=== PATIENT | male | born 1940 | race Caucasian/White ===

== ENCOUNTER 2017-04-09 18:33 | Emergency (ER) | payer MEDICARE, MEDICAID, OTHER ==
[2017-04-09] MEDS ORDERED: Enoxaparin 100 MG/1 ML Syringe SUBCUT ONE (19:30)
--- NOTE | 2017-04-10 09:01 | EDM.PDOC ---
ED HPI GENERAL MEDICAL PROBLEM - General Chief Complaint: General Stated Complaint: possible stroke Time Seen by Provider: 04/09/17 18:40 Source of Information: Reports: Patient, Family History Limitations: Reports: No Limitations - History of Present Illness INITIAL COMMENTS - FREE TEXT/NARRATIVE: This is a 76yo M who is diaphoretic and had a reported TIA yesterday. Most of his symptoms including right sided face and right arm weakness has resolved but according to family his speech has mostly but not fully resolved. Patient refused to come in to the ER yesterday. He was brought in unwillingly today but his daughter and son-in-law. He denies any chest pain, denies sob, and states he feels ok but appears diaphoretic. Family state that 2 weeks ago he was not feeling well and felt he had the flu and when laying in bed his lips were blue. This resolved over the course of a day or two. He does state he feels somewhat better but not 100%. Onset: Gradual Duration: Day(s):, Constant Location: Reports: Generalized Severity: Mild Improves with: Reports: None Worsens with: Reports: None Associated Symptoms: Reports: Diaphoresis Social & Family History - Family History Cardiac: Reports: Other (See Below) Other Cardiac Family History: Family states there is a history of cardiac problems. ED ROS GENERAL - Review of Systems Review Of Systems: ROS reveals no pertinent complaints other than HPI. ED EXAM, GENERAL - Physical Exam Exam: See Below Exam Limited By: No Limitations General Appearance: Alert, WD/WN, Mild Distress Eye Exam: Bilateral Eye: EOMI, PERRL Nose: Normal Inspection Throat/Mouth: Normal Inspection Head: Atraumatic, Normocephalic Neck: Normal Inspection Respiratory/Chest: No Respiratory Distress, Lungs Clear, Normal Breath Sounds Cardiovascular: Tachycardia, Irregularly Irregular GI/Abdominal: Normal Bowel Sounds Back Exam: Normal Inspection Extremities: Normal Inspection Neurological: Alert, Oriented, CN II-XII Intact Psychiatric: Normal Affect, Normal Mood Skin Exam: Warm, Intact, Diaphoretic Course - Vital Signs Last Recorded V/S: Last Vital Signs Temp Pulse 86 04/09/17 20:44 Resp 24 H 04/09/17 20:44 BP 137/85 04/09/17 20:44 Pulse Ox 97 04/09/17 20:44 - Orders/Labs/Meds Orders: Active Orders 24 hr Category Date Time Status EKG Documentation Completion [RC] ASDIRECTED Care 04/09/17 18:38 Active FREE T3 [REF] Stat Lab 04/10/17 09:00 Ordered FREE T4 [REF] Stat Lab 04/10/17 09:00 Ordered Labs: Laboratory Tests 04/09/17 04/09/17 04/09/17 Range/Units 18:45 18:45 18:45 WBC 7.0 (4.0-11.0) K/uL RBC 5.04 (4.50-6.50) M/uL Hgb 15.1 (13.0-18.0) g/dL Hct 44.1 (40.0-54.0) % MCV 88 (76-96) fL MCH 30.0 (27.0-32.0) pg MCHC 34.2 (31.0-35.0) g/dL RDW 13.7 (11.0-16.0) % Plt Count 188 (150-400) K/uL MPV 10.1 H (6.0-10.0) fL Neut % (Auto) 67.0 (45.0-70.0) % Lymph % (Auto) 19.1 L (20.0-40.0) % [place] % (Auto) 11.9 H (3.0-10.0) % Eos % (Auto) 1.7 (1.0-5.0) % Baso % (Auto) 0.3 (0.0-0.5) % Neut # (Auto) 4.68 (2.00-7.50) K/uL Lymph # (Auto) 1.33 L (1.50-4.00) K/uL [place] # (Auto) 0.83 H (0.20-0.80) K/uL Eos # (Auto) 0.12 (0.04-0.40) K/uL Baso # (Auto) 0.02 (0.02-0.10) K/uL PT 10.2 (9.0-11.5) sec INR 1.0 (1.0-3.5) Sodium 141 (136-145) mmol/L Potassium 4.2 (3.5-5.1) mmol/L Chloride 105 (98-107) mmol/L Carbon Dioxide 25.9 (21.0-32.0) mmol/L Anion Gap 14.3 (5.0-15.0) mmol/L BUN 12 (8-26) mg/dL Creatinine 1.18 (0.70-1.30) mg/dL Est Cr Clr Drug Dosing TNP Estimated GFR (MDRD) > 60 (>60) MLS/MIN BUN/Creatinine Ratio 10.2 (6-25) Glucose 107 H (74-100) mg/dL Calcium 9.0 (8.5-10.1) mg/dL Total Bilirubin 0.3 (0.0-1.0) mg/dL AST 37 (15-37) U/L ALT 56 (12-78) U/L Alkaline Phosphatase 79 (46-116) U/L Troponin I (0.000-0.060) ng/mL Total Protein 7.9 (6.4-8.2) g/dL Albumin 2.9 L (3.4-5.0) g/dL Globulin 5.0 H (2.2-4.2) g/dL Albumin/Globulin Ratio 0.6 L (0.8-2.0) TSH, Ultra Sensitive 3.948 H (0.358-3.740) uIU/mL 04/09/17 Range/Units 18:45 WBC (4.0-11.0) K/uL RBC (4.50-6.50) M/uL Hgb (13.0-18.0) g/dL Hct (40.0-54.0) % MCV (76-96) fL MCH (27.0-32.0) pg MCHC (31.0-35.0) g/dL RDW (11.0-16.0) % Plt Count (150-400) K/uL MPV (6.0-10.0) fL Neut % (Auto) (45.0-70.0) % Lymph % (Auto) (20.0-40.0) % [place] % (Auto) (3.0-10.0) % Eos % (Auto) (1.0-5.0) % Baso % (Auto) (0.0-0.5) % Neut # (Auto) (2.00-7.50) K/uL Lymph # (Auto) (1.50-4.00) K/uL [place] # (Auto) (0.20-0.80) K/uL Eos # (Auto) (0.04-0.40) K/uL Baso # (Auto) (0.02-0.10) K/uL PT (9.0-11.5) sec INR (1.0-3.5) Sodium (136-145) mmol/L Potassium (3.5-5.1) mmol/L Chloride (98-107) mmol/L Carbon Dioxide (21.0-32.0) mmol/L Anion Gap (5.0-15.0) mmol/L BUN (8-26) mg/dL Creatinine (0.70-1.30) mg/dL Est Cr Clr Drug Dosing Estimated GFR (MDRD) (>60) MLS/MIN BUN/Creatinine Ratio (6-25) Glucose (74-100) mg/dL Calcium (8.5-10.1) mg/dL Total Bilirubin (0.0-1.0) mg/dL AST (15-37) U/L ALT (12-78) U/L Alkaline Phosphatase (46-116) U/L Troponin I 0.036 (0.000-0.060) ng/mL Total Protein (6.4-8.2) g/dL Albumin (3.4-5.0) g/dL Globulin (2.2-4.2) g/dL Albumin/Globulin Ratio (0.8-2.0) TSH, Ultra Sensitive (0.358-3.740) uIU/mL Meds: Medications Discontinued Medications Generic Name Dose Route Start Last Admin Trade Name Yves PRN Reason Stop Dose Admin Enoxaparin Sodium 100 mg 04/09/17 19:30 04/09/17 19:30 Lovenox SUBCUT 04/09/17 19:31 100 mg ONETIME ONE Administration - Re-Assessments/Exams Free Text/Narrative Re-Assessment/Exam: Patient given 27mg of Cardizem IV x1 which rate controlled his Atrial Fibrillation and brought it down from 130-150 to 80-100 range. He felt much better once the rate was controlled. His diaphoresis resolved after a few minutes with his controlled rate and he stated he felt much better. Departure - Departure Time of Disposition: 21:20 Disposition: Home, Self-Care 01 Condition: Fair Clinical Impression: Atrial fibrillation with RVR, Elevated TSH TIA (transient ischemic attack) Qualifiers: Transient cerebral ischemia type: other Qualified Code(s): G45.8 - Other transient cerebral ischemic attacks and related syndromes Instructions: Enoxaparin injection, Diltiazem tablets, Atrial Fibrillation, [id number] Forms: ED Department Discharge Additional Instructions: Fill prescriptions for Lovenox and Cardizem at pharmacy tomorrow and take as directed. The front office will call you tomorrow with date and time for Echo scheduled. Drink plenty of fluids and get plenty of rest. Light activity as tolerated. Follow up in clinic at end of this week. Should your symptoms persist or worsen, return to be seen right away. Call with any questions. - Problem List Review Problem List Initiated/Reviewed/Updated: Yes - My Orders Last 24 Hours: My Active Orders 04/09/17 18:38 EKG Documentation Completion [RC] ASDIRECTED 04/10/17 09:00 FREE T3 [REF] Stat FREE T4 [REF] Stat - Assessment/Plan Last 24 Hours: My Active Orders 04/09/17 18:38 EKG Documentation Completion [RC] ASDIRECTED 04/10/17 09:00 FREE T3 [REF] Stat FREE T4 [REF] Stat Plan: Patient refuses to stay for observation and cardiac monitoring. Counseled family and patient on plan for Echo and use of lovenox and change to another anticoagulant. Discussed f/u in clinic for recheck and med adjustment. Patient agrees with close f/u and rtc or ER if any concerns or issues. Patient once again refuses to stay for monitoring despite repeated attempts. Family counseled and will obtain his lovenox and cardizem for rate control. F/u as directed in clinic and for Echo. Call with any concerns also.
== END 2017-04-09 21:17 | disposition home or self-care (01) ==
LOC: LB.ED 18:33
DX: G45.9 Transient cerebral ischemic attack, unspecified (principal); I48.91 Unspecified atrial fibrillation; R79.89 Other specified abnormal findings of blood chemistry
CPT/HCPCS: 36415; 80053; 84439; 84443; 84481; 84484; 85025; 85610; 93005; 96374; 99284; J1650